=== PATIENT | male | born 1950 | race Caucasian/White ===

== ENCOUNTER 2022-05-12 08:52 | Outpatient (REF) | payer MEDICARE, SELFPAY ==
--- NOTE | ~2022-05-12 | FL_ITS ---
EXAMINATION: XR GI SERIES CLINICAL INFORMATION: Gastroesophageal reflux disease without esophagitis COMPARISON: None TECHNIQUE: Upper GI was performed using thin and thick barium and effervescent granules. FINDINGS: There is significant gastroesophageal reflux. There is a small hiatal hernia. There is irregularity of the esophagus suggestive of mild esophagitis. Transient tertiary contractions are seen with the patient in the prone/MOON position. The stomach and duodenum are normal-appearing. No fold thickening, mass, ulcer or stricture is seen. FLUOROSCOPY TIME: 1.2 minutes DOSE AREA PRODUCT: 15 engel per centimeter squared. 38 saved fluoroscopic images. FL/FL upper GI series IMPRESSION: Significant gastroesophageal reflux and question mild esophagitis.. Small hiatal hernia.
== END 2022-05-12 08:53 | disposition home or self-care (01) ==
LOC: HO.XRAY 08:52
PROVIDERS: PCP Internal Medicine; Visit Provider Internal Medicine Gastroenterology
DX: K21.9 Gastro-esophageal reflux disease without esophagitis (principal)
CPT/HCPCS: 74240

== ENCOUNTER → 2024-02-16 08:48 | Outpatient (REF) | payer MEDICARE, SELFPAY ==
--- NOTE | 2024-02-16 08:54 | CA_ITS ---
Transthoracic Echocardiogram Patient (Last, First, Middle): Parrish Linares J Gender: Male Date of : 1950 Age: 73 Procedure Date: 02/16/2024 Procedure Type: Transthoracic Echocardiogram Location: OP Height: 175.26 cm Weight: 104.33 kg BSA: 2.19 m2 Heart Rate: bpm BP: 120 / 80 mmHg Salad Chef: GADIEL Referring MD: Fadi Montemayor MD Symptoms: I10 HTN BUCK R06.09 Study Quality: Adequate ECG Rhythm: Sinus Conclusions: - The left ventricular systolic function is normal. The calculated ejection fraction is 64% by biplane method. - No obvious valvular pathology seen on this study. Findings Left Ventricle Normal left ventricular cavity size. There is normal left ventricular wall thickness. The left ventricular systolic function is normal. The calculated ejection fraction is 64% by biplane method. There is no evidence of regional wall motion abnormalities. Diastolic function is normal for age. Right Ventricle Normal right ventricular cavity size and systolic function. Atria Both atria are normal in size. Aortic Valve There is a normal trileaflet aortic valve. There is no aortic valve stenosis. There is no aortic valve regurgitation. Mitral Valve The mitral valve appears normal. There is no mitral valve regurgitation. There is no mitral valve stenosis. Pulmonic Valve There is trace pulmonic valve regurgitation. Tricuspid Valve Normal tricuspid valve structure. There is mild tricuspid valve regurgitation. There is no evidence of pulmonary hypertension. Great Vessels The asc aorta is normal in size. Venous The inferior vena cava is normal in size and collapses greater than 50% with inspiration. Pericardium/Pleural There is no evidence of pericardial effusion. Prior Study Comparison No prior study available for comparison. Recommendations, Care & Conclusions No obvious valvular pathology seen on this study. Measurements 2D Linear Measurements IVSd: 0.96 0.6-0.9/0.6-1.0 cm LVIDd: 5.00 3.9-5.3/4.2-5.9 cm LVIDd Index: 2.28 2.4-3.2/2.2-3.1 cm/m2 LVIDs: 2.68 2.0-3.6 cm LVPWd: 0.86 0.7-1.1 cm LA Diam: 4.00 2.7-3.8/3.0-4.0 cm LAIDs Index: 1.83 1.5-2.3 cm/m2 LV Mass: 199.03 67-162/88-224 g LV Mass Index: 90.88 43-95/49-115 g/m2 LVOT Diam: 2.20 3.0+(-)1.3 cm 2D Systolic Function EF 4C: 67.90 >55% EF 2C: 56.50 >55% EF BiP: 63.60 >55% Mitral Valve MV Pk E: 0.80 MV PK A: 1.06 MV Decel Time: 285.00 E/A: 0.80 E'Lateral: 7.51 E'Medial: 6.64 E/E' Med: 12.00 E/E' Lat: 10.60 PHT: 83.00 MVA PHT: 2.65 Decel [place]: 2.79 Aortic Valve AoV Pk [place]: 1.68 AoV Mn [place]: 1.05 AoV VTI: 0.35 AoV Pk Grad: 11.00 Aov Mn Grad: 5.00 LIDIA Cont.VTI: 2.91 LVOT LVOT Pk [place]: 1.35 LVOT Mn [place]: 0.80 LVOT VTI: 0.26 LVOT Pk Grad: 7.00 LVOT Mn Grad: 3.00 LVOT Diam: 2.20 LVOT Area: 3.80 Diastolic Function MV Pk E: 0.80 MV Pk A: 1.06 E/A: 0.80 E'Medial: 6.64 E/E' Med: 12.00 E' Laterial: 7.51 E/E' Lat: 10.60 Right Ventricle TAPSE (mm): 23.20 TVS' [place]: 11.00 Tricuspid Valve TR Pk [place]: 2.43 TR Pk Grad: 24.00 RA Press: 8.00 RVSP: 32.00 Great Vessels Aorta Sinus of Valsalva: 3.75 2.0-3.[address] [place]: 3.02 1.7-3.4 cm Ao Asc: 3.60 2.1-3.4 cm Updated in Other Vendor System with Status of Final Arturo Thomas MD electronically signed on 02/17/2024 2:41:52 PM with status of Final
== END ==
LOC: HO.CARD 08:48
PROVIDERS: PCP Internal Medicine; Visit Provider Internal Medicine
DX: I10 Essential (primary) hypertension (principal); R06.09 Other forms of dyspnea
CPT/HCPCS: 93306

== ENCOUNTER → 2024-02-16 08:54 | Outpatient (BNV) | payer MEDICARE, SELFPAY | PROVIDERS: PCP Internal Medicine; Visit Provider Internal Medicine | DX: I36.1 Nonrheumatic tricuspid (valve) insufficiency (principal) | CPT/HCPCS: 93306 ==

== ENCOUNTER 2024-03-20 13:43 | Outpatient (AMB) | payer MEDICARE, SELFPAY ==
--- NOTE | 2024-03-20 13:46 | MHC.OFFVIS ---
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/Dyspnea on exertion Intake Note: New patient with ekg after echo c/o sob on exertion with stairs or incline Site Medical Director Required: No Allergies No Known Allergies [No Known Allergies*] Allergy (Unverified 03/14/22 13:08) Medication List - Last Reconciled 03/20/24 by Geovany Davis MD allopurinol 300 mg PO amlodipine 2.5 mg PO DAILY atorvastatin 20 mg PO DAILY bupropion HCl XL 300 mg PO DAILY citalopram 30 mg PO glucosamine-chondroitin 250-200 mg (Osteo Bi-Flex) 2 tabs PO TID [id number]-[id number]-fyejsh 327-95-115-300 mcg (Centrum Silver Men) 1 tab PO DAILY olmesartan 40 mg PO DAILY omega 5-qvv-jgv-fish oil 60-90-500 mg (Fish Oil) 1 cap PO DAILY pantoprazole 40 mg PO DAILY HPI Comments Details: Thank you for referring Parrish in cardiology consultation today for recent onset symptoms exertional shortness of breath. He is a pleasant 74-year-old male who says has been active in the past and plays golf regularly. High more recently last 6 months he is noticing walking up hill he would get shortness of breath. No associated chest tightness. Recently underwent an echocardiogram which showed normal cardiac structure and function with ortiz LV systolic and diastolic function without any significant valvular abnormalities. He presents here for further workup. Denies any prolonged palpitation irregular heartbeat. Denies any orthopnea, PND, leg edema. Taking all his medications. l [facility] Surgical History History of Achilles tendon repair Family History Father No problems noted. Mother No problems noted. Social History Patient Tobacco Use Status: Former Tobacco user Review of Systems Const Denies chills, Denies daytime sleepiness, Denies fatigue, Denies fever(s), Denies frequent falls, Denies poor appetite, Denies snoring, Denies stops breathing during sleep, Denies weakness, Denies weight gain and Denies weight loss Eyes Denies loss of vision ENT Denies dizziness and Denies hearing loss Card Denies chest pain, Denies claudication, Denies leg edema, Denies lightheadedness, Denies palpitations, Denies dyspnea, Denies dyspnea on exertion and Denies orthopnea Resp Denies cough, Denies excessive phlegm production, Denies dyspnea, Denies dyspnea on exertion, Denies snoring and Denies wheezing GI Denies abdominal pain, Denies hematochezia, Denies change in bowel habits, Denies nausea and Denies vomiting Denies dysuria and Denies urinary frequency Musc Denies arthralgias, Denies muscle weakness, Denies numbness and Denies other (frequent falls) Skin/Breast Denies nail changes and Denies rash Neuro Denies Abnormal speech present, Denies dizziness, Denies frequent falls, Denies loss of vision, Denies memory loss, Denies numbness and Denies weakness Psych Denies depression and Denies memory loss Endo Denies fatigue and Denies palpitations Alex/Lymph Reports easy bruising and Reports other (anemia) Aller/Immun Denies wheezing Physical Exam Vital Signs: Last Vital Signs Pulse 75 03/20/24 13:47 BP 116/74 03/20/24 13:47 BMI result Body Mass Index 34.5 Const General: cooperative, comfortable, no acute distress, alert, awake, Physically active and well groomed Nutritional Appearance: obese Orientation/consciousness: patient oriented x3 Limitations: no limitations HEENT Head: Yes normocephalic and Yes atraumatic Neck Neck: Yes trachea midline, Yes supple and Yes no JVD Resp Effort & Inspection: normal respiratory effort Auscultation: clear to auscultation bilaterally Cardio Jugular venous distension: no JVD Palpation: normal PMI Rate: regular rate Rhythm: regular rhythm Heart sounds: S1 normal heart sound present, S2 normal heart sound present, no click, no gallops, no murmurs and no rubs GI Auscultation: normal bowel sounds Skin General skin exam: no rashes or lesions noted Neuro General: patient oriented x3 and no focal motor deficits Speech: No Abnormal speech present Extrem General: Yes no clubbing, cyanosis or edema Psych Appearance: grossly normal Office Procedures EKG Details: EKG shows normal sinus rhythm with minimal voltage criteria for LVH 76099-[id number], Complete Assessment & Plan Assessment & Plan (1) SOB (shortness of breath) on exertion: Code(s): R06.02 - Shortness of breath Category: Medical Plan: Exertional shortness of breath in this elderly gentleman with multiple risk factors including agent, hypertension hyperlipidemia with echocardiogram showing relatively normal structure of the heart with no signs or symptoms of heart failure. Blood pressure is currently well optimized. Recommend evaluation for obstructive coronary artery disease as this is highly likely. We discussed about physiologic testing versus anatomic testing. Suggest to pursue physiologic testing to evaluate for exercise capacity and evaluate for myocardial ischemia which may be prognostically significant. Would suggest exercise myocardial perfusion imaging in near future. His prior travel for trip abroad and I would like to pursue this stress testing as soon as possible in near future. Further treatment based on the findings. This was discussed with him. Currently his blood pressure is well optimized. Continue current treatment. Importance of good blood pressure control was discussed. Continue lipid modification. Target goal LDL definitely less than 100 mg/dL. If myocardial perfusion imaging is negative adequate workload, should pursue regular physical training and weight reduction to improve his symptoms. Will follow up in the clinic in 6 weeks time, sooner p.r.n.. Thank you for allowing me to partake in his care Orders: Orders CA stress test Today R06.02 - Shortness of breath NM cardiolite stress test 2 Weeks R07.9 - Chest pain, unspecified Coding Level of Care Code New Pt Level 4 (36071) Diagnoses SOB (shortness of breath) on exertion R06.02 CPT Codes EKG - CPT: 18354-[id number], Complete ([id number])
[2024-03-20 13:47] VITALS: BP 116/74; PULSE 75; BMI 34.5
== END 2024-03-20 14:29 | disposition home or self-care (01) ==
PROVIDERS: PCP Internal Medicine; Visit Provider Internal Medicine Cardiovascular Disease
DX: R06.02 Shortness of breath (principal)
CPT/HCPCS: 93010; 99204

== ENCOUNTER → 2024-03-20 13:43 | Outpatient (BNVA) | payer MEDICARE, SELFPAY | PROVIDERS: PCP Internal Medicine; Visit Provider Internal Medicine Cardiovascular Disease | DX: R07.9 Chest pain, unspecified (principal); R06.02 Shortness of breath | CPT/HCPCS: 93005; 99202 ==

== ENCOUNTER → 2024-03-21 08:23 | Outpatient (BNV) | payer MEDICARE, SELFPAY | PROVIDERS: PCP Internal Medicine; Visit Provider Nurse Practitioner | DX: I49.3 Ventricular premature depolarization (principal); R06.02 Shortness of breath | CPT/HCPCS: 78452; 93016; 93018 ==

== ENCOUNTER → 2024-03-22 12:04 | Outpatient (BNV) | payer MEDICARE, SELFPAY | PROVIDERS: PCP Internal Medicine; Visit Provider Nurse Practitioner | DX: R06.02 Shortness of breath (principal) | CPT/HCPCS: 93016; 93018 ==

== ENCOUNTER → 2024-03-22 12:09 | Outpatient (REF) | payer MEDICARE, SELFPAY ==
--- NOTE | 2024-03-21 08:23 | CA_ITS ---
Acquisition Time: 2024-03-21 09:19:03 Total Exercise Time: 00:06:00 Test Indications: CP, SOB Medications: SEE H Protocol: GIN Max HR: 142 BPM 97% of Pred: 145 BPM Max BP: 188/060 mmHG Max Work Load: 7.0 METS Exercise stress test exercise 6 mins of Gin protocol achieving 97% MPHR, with mild to moderate SOB, without chest discomfort, with isolated PVC, with normotensive response to exercise, with brisk HR response, with downsloping in leads 2, aVF, V3-V6. breathing returned to normal with rest. Nuclear images pending. Test reviewed with Dr. Davis Referred By: Geovany Davis Overread By: Brissa Kulkarni
--- NOTE | ~2024-03-22 | NM_ITS ---
EXERCISE MYOCARDIAL PERFUSION STUDY INDICATION: Chest pain TECHNIQUE: The patient was brought in for an exercise perfusion study on 03/22/2024. Patient performed exercise as per Garrett protocol and was injected 35 mCi of sestamibi once target heart rate was achieved. Images were obtained using the SPECT gamma camera interlaced with the gating device. Images were obtained in supine position. Resting perfusion study was performed on 03/21/2024. Patient was administered 35 mCi of sestamibi intravenously at rest. Images were then obtained in supine position. Images were processed with the software and compared side to side in short axis, horizontal long axis and vertical long axis views. Total DLP 180mGy-cm. FINDINGS: Raw images were reviewed. Arms by the patient's side. The stress perfusion study showed diminished tracer uptake along the inferior wall. There is improvement with CT attenuation correction suggestive of diaphragmatic attenuation artifact. The gated study shows normal LV systolic function with calculated LVEF of 59%. LV cavity is normal in size. The gated study shows normal wall thickening and contraction of segments. Resting study shows diminished tracer uptake along the inferior wall. There is improvement with CT attenuation correction congestive of diaphragmatic attenuation artifact. Gating at rest reveals normal wall motion with ejection fraction at 56%. The findings are consistent with fixed inferior perfusion defect, probably from diaphragmatic attenuation artifact. No reversible defects. NM/NM cardiolite stress test IMPRESSION: 1. Myocardial perfusion imaging study shows probably normal myocardial perfusion. 2. Gated LVEF is 59% during stress and 56% during rest. 3. Transient ischemic dilatation not present. EKG component of the test reported separately.
--- NOTE | 2024-03-22 12:04 | CA_ITS ---
Acquisition Time: 2024-03-22 08:21:44 Total Exercise Time: 00:05:30 Test Indications: CP Medications: SEE H Protocol: GIN Max HR: 141 BPM 97% of Pred: 145 BPM Max BP: 154/060 mmHG Max Work Load: 7.0 METS Exercise stress test exercise 5 min 30 sec of Gin protocol achieving 97% MPHR, with moderate SOB, no chest discomforts, without arrhythmias, with normotensive response to exercise, with brisk HR response, with downsloping in leads 2, aVF, V5-V6 not meeting criteria for ischemia. Breathing returned to baseline with rest. Nuclear images pending. Test reviewed with Dr. Davis Referred By: Geovany Davis Overread By: Brissa Kulkarni
== END ==
LOC: HO.CARD 12:09
PROVIDERS: PCP Internal Medicine; Visit Provider Internal Medicine Cardiovascular Disease
DX: R07.9 Chest pain, unspecified (principal); R06.02 Shortness of breath
CPT/HCPCS: 78452; 93017; A9500

== ENCOUNTER 2024-04-26 11:23 | Outpatient (AMB) | payer MEDICARE, SELFPAY ==
--- NOTE | 2024-04-26 11:25 | A.OFFVIS_ITS ---
Vital Signs 04/26/24 11:26 Height 5 ft 9 in Weight 233 lb 11.04 oz BMI 34.5 BP 130/80 Blood Pressure Location Lt brachial Position Sitting Pulse 80 Intake Visit Reasons: follow-up after stress test Intake Note: Follow-up after stress test feeling good Animal Nutrition Consultant Required: No Allergies No Known Allergies [No Known Allergies*] Allergy (Unverified 03/14/22 13:08) HPI Comments Details: Parrish comes for follow-up. Recently traveled to [place]. Play golf there. Denies any worsening shortness of breath. Doing well overall otherwise. Underwent myocardial perfusion imaging which was negative for ischemia. Denies any new symptoms. [facility] Surgical History History of Achilles tendon repair Family History Father No problems noted. Mother No problems noted. Social History Patient Tobacco Use Status: Former Tobacco user Review of Systems Const Denies chills, Denies daytime sleepiness, Denies fatigue, Denies fever(s), Denies frequent falls, Denies poor appetite, Denies snoring, Denies stops breathing during sleep, Denies weakness, Denies weight gain and Denies weight loss Eyes Denies loss of vision ENT Denies dizziness and Denies hearing loss Card Denies chest pain, Denies claudication, Denies leg edema, Denies lightheadedness, Denies palpitations, Denies dyspnea, Denies dyspnea on exertion and Denies orthopnea Resp Denies cough, Denies excessive phlegm production, Denies dyspnea, Denies dyspnea on exertion, Denies snoring and Denies wheezing GI Denies abdominal pain, Denies hematochezia, Denies change in bowel habits, Denies nausea and Denies vomiting Denies dysuria and Denies urinary frequency Musc Denies arthralgias, Denies muscle weakness, Denies numbness and Denies other (frequent falls) Skin/Breast Denies nail changes and Denies rash Neuro Denies Abnormal speech present, Denies dizziness, Denies frequent falls, Denies loss of vision, Denies memory loss, Denies numbness and Denies weakness Psych Denies depression and Denies memory loss Endo Denies fatigue and Denies palpitations Alex/Lymph Reports easy bruising and Reports other (anemia) Aller/Immun Denies wheezing Physical Exam Vital Signs: Last Vital Signs Pulse 80 04/26/24 11:26 BP 130/80 04/26/24 11:26 BMI result Body Mass Index 34.5 Const General: cooperative, comfortable, well developed, alert and awake Nutritional Appearance: obese Orientation/consciousness: patient oriented x3 Neck Neck: Yes trachea midline, Yes supple and Yes no JVD Resp Effort & Inspection: normal respiratory effort Auscultation: clear to auscultation bilaterally Cardio Jugular venous distension: no JVD Palpation: normal PMI Rate: regular rate Rhythm: regular rhythm Heart sounds: S1 normal heart sound present, S2 normal heart sound present, no click, no gallops, no murmurs and no rubs Neuro General: patient oriented x3 and no focal motor deficits Speech: No Abnormal speech present Extrem General: Yes no clubbing, cyanosis or edema Assessment & Plan Assessment & Plan (1) SOB (shortness of breath) on exertion: Code(s): R06.02 - Shortness of breath Category: Medical Plan: Exertional shortness of breath this elderly gentleman with factors of hypertension hyperlipidemia. Currently myocardial perfusion imaging is within normal limits. Echocardiogram shows normal LV structure and function and no major valvular abnormalities. Unlikely shortness of breath related to underlying cardiac issues. Probably related to aging as well as deconditioning and weight. Advised to continue to participate in regular physical activity and weight loss program. Good prognosis associated with normal myocardial perfusion imaging was discussed with him. He understands agrees. However if he gets progressive symptoms of shortness of breath would not hesitate to pursue further workup including coronary CTA. This was discussed with him. He understands agrees. He will call me with worsening symptoms. Target goal LDL less than 70 mg/dL Will follow up otherwise in the clinic if need be. Thank you for allowing me to partake in his care Coding Level of Care Code Est Pt Level 3 (66950) Diagnoses SOB (shortness of breath) on exertion R06.02
[2024-04-26 11:26] VITALS: BP 130/80; PULSE 80; BMI 34.5
== END 2024-04-26 12:28 | disposition home or self-care (01) ==
PROVIDERS: PCP Internal Medicine; Visit Provider Internal Medicine Cardiovascular Disease
DX: R06.02 Shortness of breath (principal)
CPT/HCPCS: 99213

== ENCOUNTER → 2024-04-26 11:23 | Outpatient (BNVA) | payer MEDICARE, SELFPAY | PROVIDERS: PCP Internal Medicine; Visit Provider Internal Medicine Cardiovascular Disease | DX: R06.02 Shortness of breath (principal) | CPT/HCPCS: 99212 ==